=== PATIENT | female | born 1960 | race Caucasian/White ===

== ENCOUNTER 2020-02-09 00:25 | Outpatient (CLI) | payer OTHER, SELFPAY ==
[2020-02-09 20:23] LABS: SARS-CoV-2 RNA PCR Negative
== END 2020-02-09 00:26 | disposition home or self-care (01) ==
LOC: ANHCOVIDDT 00:25
PROVIDERS: PCP Family Medicine; Visit Provider Internal Medicine Gastroenterology
DX: Z01.812 Encounter for preprocedural laboratory examination (principal); Z20.828 Contact with and (suspected) exposure to other viral communicable diseases
CPT/HCPCS: 87635; C9803; U0003

== ENCOUNTER 2020-02-11 01:50 | Day surgery (SDC) | payer OTHER, SELFPAY ==
[2020-02-03 13:28] VITALS: BMI 29.3
[2020-02-11 08:01] VITALS: BP 137/70; PULSE 63; RESP 18; TEMP 36.6; O2SAT 99
--- NOTE | 2020-02-11 08:01 | WPDANESEPPF ---
Anes - Initial Pre Proc Eval Procedure: Operation Date: 02/11/20 09:00 Proposed Procedures p Esophagogastroduodenoscopy - Edward Kohli MD Date/Time: 02/11/20 08:01 Surgeon: Edward Kohli MD Pre Op Diagnosis: Lagunas's Esophagus Patient Data Age: 59 Gender: F Height: 5 ft 5 in Weight: 80 kg Allergies Allergy/AdvReac Type Severity Reaction Status Date / Time atorvastatin Allergy Unknown Unknown Verified 02/11/20 08:00 codeine Allergy Unknown Unknown Verified 02/11/20 08:00 losartan Allergy Unknown Unknown Verified 02/11/20 08:00 sumatriptan Allergy Unknown Unknown Verified 02/11/20 08:00 Home Medications Medication Instructions Recorded Confirmed Type esomeprazole magnesium 40 mg 40 mg PO DAILY #90 cap 10/20/19 02/03/20 Rx capsule,delayed release metoprolol succinate 25 mg 25 mg PO DAILY #7 tablet 10/20/19 02/11/20 Rx tablet,extended release 24 hr ezetimibe 10 mg tablet 10 mg PO DAILY #90 tablet 02/09/20 Rx Patient hx anesthesia problems: none Family hx anesthesia problems: none [facility] Past Medical History Medical History GERD (gastroesophageal reflux disease) Hypertension Family History Family History Father Hypertension Family history of diabetes mellitus in first degree relative Family history of primary malignant neoplasm of liver Mother Family history of elevated blood lipids Family history of Alzheimer's disease Other Family history of coronary artery disease Social History Social History Smoking status: Former smoker Second hand tobacco smoke exposure: No Alcohol intake: never Anes - Eval Final PreProcedure Day of Procedure 02/11/20 08:01 Patient weight: overweight Heart: regular rate and rhythm Lungs: clear to auscultation Airway: Mallampati scale class II Neurological: alert and oriented Last oral intake: >/= 8 hours ASA classification: II Emergent: no Anesthetic plan: proceed Anesthesia type and monitoring: general GIVS and standard monitoring Informed Consent: The patient's anesthetic plan and its attendant risks and benefits were discussed with the patient/family/POA. Questions were solicited and answers provided to the satisfaction of the patient/family/POA.
[2020-02-11] MEDS: LACTATED RINGERS 1,000 ML 150 ML IV CONT (08:15)
--- NOTE | 2020-02-11 08:20 | P.HP_ITS ---
History of Present Illness History of Present Illness Consent: Risks, benefits, and alternatives have been discussed and questions answered. Patient agrees to proceed with procedure. Chief complaint: Lagunas's Esophagus Narrative: Maddi Deras is a 59 year old female With known Lagunas's esophagus here for follow-up. [facility] Past Medical History Medical History GERD (gastroesophageal reflux disease) Hypertension Family History Family History Father Hypertension Family history of diabetes mellitus in first degree relative Family history of primary malignant neoplasm of liver Mother Family history of elevated blood lipids Family history of Alzheimer's disease Other Family history of coronary artery disease Social History Social History Smoking status: Former smoker Second hand tobacco smoke exposure: No Alcohol intake: never Meds Home Medications and Allergies Home Medications Medication Instructions Recorded Confirmed Type esomeprazole magnesium 40 mg 40 mg PO DAILY #90 cap 10/20/19 02/03/20 Rx capsule,delayed release metoprolol succinate 25 mg 25 mg PO DAILY #7 tablet 10/20/19 02/11/20 Rx tablet,extended release 24 hr ezetimibe 10 mg tablet 10 mg PO DAILY #90 tablet 02/09/20 Rx Allergies Allergy/AdvReac Type Severity Reaction Status Date / Time atorvastatin Allergy Unknown Unknown Verified 02/11/20 08:00 codeine Allergy Unknown Unknown Verified 02/11/20 08:00 losartan Allergy Unknown Unknown Verified 02/11/20 08:00 sumatriptan Allergy Unknown Unknown Verified 02/11/20 08:00 Vital Signs Vital Signs - 24 hr 02/11/20 08:01 Temperature 36.6 C Pulse Rate 63 Respiratory Rate 18 Blood Pressure 137/70 Pulse Oximetry 99 Exam Const: General: alert Orientation/consciousness: patient oriented x3 Resp: Auscultation: clear to auscultation bilaterally Cardio: Rhythm: regular rhythm GI: GI Palp: Yes Soft to palpation and No Tenderness to palpation present (GI) Neuro: General: patient oriented x3 Assessment and Plan Assessment and plan (1) Lagunas's esophagus: Code(s): K22.70 - Lagunas's esophagus without dysplasia Status: Acute Assessment and Plan: EGD with possible biopsy or dilatation or cautery.
[2020-02-11 09:12] VITALS: BP 104/55; PULSE 68; RESP 21; O2SAT 97
[2020-02-11 09:22] VITALS: BP 108/58; BP 117/66; PULSE 60; PULSE 65; RESP 17; RESP 18; O2SAT 98
== END 2020-02-11 09:50 | disposition home or self-care (01) ==
PROVIDERS: PCP Family Medicine; Visit Provider Internal Medicine Gastroenterology
PROC: 0DJ08ZZ Inspection of Upper Intestinal Tract, Via Natural or Artificial Opening Endoscopic (ICD-10-PCS; CPT 43235; principal; 2020-02-11 09:00)
DX: K22.70 Barrett's esophagus without dysplasia (principal); K21.0 Gastro-esophageal reflux disease with esophagitis; I10 Essential (primary) hypertension
CPT/HCPCS: 43239; 88305; J2704; J7120

== ENCOUNTER 2020-08-19 09:20 | Outpatient (CLI) | payer OTHER, SELFPAY ==
[2020-08-19 09:59] LABS: Hematocrit 36.5 % (37.0-47.0); Hemoglobin 12.3 g/dL (12.0-15.0); Mean Corpuscular HGB Conc 33.7 g/dl (32-36); Mean Corpuscular Hemoglobin 28.2 pg (26-34); Mean Corpuscular Volume 83.7 fl (80-100); Mean Platelet Volume 9.5 fl (7.4-10.4); Platelet Count Result 283 k/mm3 (150-375); Red Blood Count 4.36 M/mm3 (4.2-5.4); Red Cell Distribution Width 13.2 % (11.5-14.5); White Blood Count 6.8 K/mm3 (4.5-10.0)
[2020-08-19 10:13] LABS: Alanine Aminotransferase 33 U/L (4-35); Albumin Level 4.2 g/dL (3.5-5.1); Alkaline Phosphatase 87 U/L (38-126); Anion Gap 6 mmol/L (8-16); Aspartate Amino Transferase 36 U/L (14-36); Bilirubin,Total 0.4 mg/dL (0.2-1.3); Blood Urea Nitrogen 13 mg/dL (7-17); Calcium 8.7 mg/dL (8.4-10.2); Carbon Dioxide 30 mmol/L (22-30); Chloride 107 mmol/L (98-107); Cholesterol 206 mg/dL (0-200); Estimated Glomerular Filt Rate 57; Glucose 112 mg/dL (65-105); HDL Direct 33 mg/dL; Potassium 4.2 mmol/L (3.4-5.0); Sodium 143 mmol/L (137-145); Triglycerides 181 mg/dL (<150)
[2020-08-19 10:25] LABS: LDL Cholesterol Direct 138 mg/dL
[2020-08-19 10:44] LABS: Thyroid Stimulating Hormone 0.923 uIU/mL (0.465-4.680)
== END 2020-08-19 09:21 | disposition home or self-care (01) ==
PROVIDERS: PCP Family Medicine; Visit Provider Nurse Practitioner Family
DX: I10 Essential (primary) hypertension (principal); E78.5 Hyperlipidemia, unspecified; Z13.29 Encounter for screening for other suspected endocrine disorder
CPT/HCPCS: 36415; 80053; 80061; 84443; 85027

== ENCOUNTER 2021-03-23 09:15 | Outpatient (CLI) | payer OTHER, SELFPAY ==
[2021-03-23 09:54] LABS: Alanine Aminotransferase 47 U/L (4-35); Albumin Level 4.8 g/dL (3.5-5.1); Alkaline Phosphatase 113 U/L (38-126); Anion Gap 9 mmol/L (8-16); Aspartate Amino Transferase 48 U/L (14-36); Bilirubin,Total 0.4 mg/dL (0.2-1.3); Blood Urea Nitrogen 17 mg/dL (7-17); Carbon Dioxide 23 mmol/L (22-30); Chloride 108 mmol/L (98-107); Cholesterol 193 mg/dL (0-200); Estimated Glomerular Filt Rate > 60; Glucose 129 mg/dL (65-110); HDL Direct 33 mg/dL; Potassium 4.4 mmol/L (3.4-5.0); Sodium 140 mmol/L (137-145); Triglycerides 170 mg/dL (<150)
[2021-03-23 10:05] LABS: LDL Cholesterol Direct 133 mg/dL
== END 2021-03-23 09:16 | disposition home or self-care (01) ==
LOC: ANHLAB 09:17
PROVIDERS: PCP Family Medicine; Visit Provider Internal Medicine Cardiovascular Disease
DX: G47.30 Sleep apnea, unspecified (principal); I10 Essential (primary) hypertension; E78.5 Hyperlipidemia, unspecified; K21.9 Gastro-esophageal reflux disease without esophagitis; R07.9 Chest pain, unspecified
CPT/HCPCS: 36415; 80053; 80061

== ENCOUNTER 2023-06-26 00:17 | Day surgery (SDC) | payer OTHER, SELFPAY ==
--- NOTE | 2023-06-22 12:05 | SUR.PREOP ---
Patient called regarding upcoming procedure. left voicemail with procedure date and time and contact for questions.
--- NOTE | 2023-06-22 15:44 | PM.HPGS ---
History of Present Illness History of Present Illness Consent: Risks, benefits, and alternatives have been discussed and questions answered. Patient agrees to proceed with procedure. Chief complaint: Lagunas's esophagus without dysplasia Narrative: Maddi Deras is a 63 year old female With Lagunas's esophagus undergoing surveillance endoscopy. Review of Systems Review of Systems: All systems reviewed & are unremarkable except as noted in HPI and below PMFSH Past Medical History Medical History Abnormal MRI of head BMI 31.0-31.9,adult GERD (gastroesophageal reflux disease) Hypertension Family History Family History Father Hypertension Family history of diabetes mellitus in first degree relative Family history of primary malignant neoplasm of liver Mother Family history of elevated blood lipids Family history of Alzheimer's disease Other Family history of coronary artery disease Social History Social History Smoking status: Never smoker Second hand tobacco smoke exposure: No Alcohol intake: never Substance use: never Substance use type: does not use Living arrangements: with family 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 care concerns: No Meds Home Medications and Allergies Home Medications Medication Instructions Recorded Confirmed Type metoprolol succinate 25 mg 50 mg PO DAILY emergency department clinician 10/12/20 06/26/23 History tablet,extended release 24 hr esomeprazole magnesium 40 mg 40 mg PO DAILY #90 caps 08/13/22 06/26/23 Rx capsule,delayed release (Nexium) bempedoic acid 180 mg tablet 180 mg PO DAILY 01/22/23 06/26/23 History (Nexletol) losartan 50 mg tablet 50 mg PO DAILY 01/22/23 06/26/23 History ezetimibe 10 mg tablet 10 mg PO DAILY #90 tabs 05/04/23 06/26/23 Rx Allergies Allergy/AdvReac Type Severity Reaction Status Date / Time sumatriptan Allergy Unknown Unknown Verified 06/26/23 10:24 Exam Const: General: alert Orientation/consciousness: patient oriented x3 Resp: Auscultation: clear to auscultation bilaterally Cardio: Rhythm: regular rhythm GI: GI Palp: Yes Soft to palpation and No Tenderness to palpation present (GI) Neuro: General: patient oriented x3 Assessment and Plan Assessment and plan (1) Lagunas's esophagus: Code(s): K22.70 - Lagunas's esophagus without dysplasia Status: Acute Assessment and Plan: EGD with possible biopsy or dilatation or cautery.
[2023-06-26 10:25] VITALS: BP 141/67; PULSE 79; RESP 16; TEMP 36.1; O2SAT 98; BMI 31.8
--- NOTE | 2023-06-26 10:41 | P.PNAN_ITS ---
Anes - Initial Pre Proc Eval Procedure: Operation Date: 06/26/23 11:30 Proposed Procedures p Esophagogastroduodenoscopy - Edward Kohli MD Date/Time: 06/26/23 10:41 Surgeon: Edward Kohli MD Pre Op Diagnosis: Lagunas's esophagus without dysplasia Patient Data Age: 63 Gender: F Height: 1.65 m Weight: 86.7 kg Last Vital Signs Temp 96.9 F L 06/26/23 10:25 Pulse 79 06/26/23 10:25 Resp 16 06/26/23 10:25 BP 141/67 H 06/26/23 10:25 Pulse Ox 98 06/26/23 10:25 O2 Del Method Room Air 06/26/23 10:25 Allergies Allergy/AdvReac Type Severity Reaction Status Date / Time sumatriptan Allergy Unknown Unknown Verified 06/26/23 10:24 Home Medications Medication Instructions Recorded Confirmed Type metoprolol succinate 25 mg 50 mg PO DAILY pocket stitcher 10/12/20 06/26/23 History tablet,extended release 24 hr esomeprazole magnesium 40 mg 40 mg PO DAILY #90 caps 08/13/22 06/26/23 Rx capsule,delayed release (Nexium) bempedoic acid 180 mg tablet 180 mg PO DAILY 01/22/23 06/26/23 History (Nexletol) losartan 50 mg tablet 50 mg PO DAILY 01/22/23 06/26/23 History ezetimibe 10 mg tablet 10 mg PO DAILY #90 tabs 05/04/23 06/26/23 Rx Patient hx anesthesia problems: none Family hx anesthesia problems: none Results Review: All pre-operative results and documents have been reviewed as part of the pre- operative evaluation. [facility] Past Medical History Medical History Abnormal MRI of head BMI 31.0-31.9,adult GERD (gastroesophageal reflux disease) Hypertension Family History Family History Father Hypertension Family history of diabetes mellitus in first degree relative Family history of primary malignant neoplasm of liver Mother Family history of elevated blood lipids Family history of Alzheimer's disease Other Family history of coronary artery disease Social History Social History (Reviewed 01/22/23 @ 09:38 by NEMO Zarate Smoking status: Never smoker Second hand tobacco smoke exposure: No Alcohol intake: never Substance use: never Substance use type: does not use Living arrangements: with family 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 care concerns: No Anes - Eval Final PreProcedure Day of Procedure 06/26/23 10:41 Patient weight: obese Heart: regular rate and rhythm Lungs: clear to auscultation Airway: Mallampati scale class II Neurological: alert and oriented Last oral intake: >/= 8 hours ASA classification: III Emergent: no Anesthetic plan: proceed Anesthesia type and monitoring: general GIVS and standard monitoring Results Review: All pre-operative results and documents have been reviewed as part of the pre- operative evaluation. Informed Consent: The patient's anesthetic plan and its attendant risks and benefits were discussed with the patient/family/POA. Questions were solicited and answers provided to the satisfaction of the patient/family/POA.
[2023-06-26] MEDS: LACTATED RINGERS 1,000 ML 150 ML IV CONT (10:42)
[2023-06-26] MEDS: BENZOCAINE (*SP) 60 ML SPRAY CAN (HURRICAINE) 1 SPRAY MUCOUS MEM (11:41)
[2023-06-26 11:53] VITALS: BP 122/64; PULSE 65; RESP 26; O2SAT 97
[2023-06-26 12:03] VITALS: BP 117/64; PULSE 60; RESP 16; O2SAT 97
[2023-06-26 12:13] VITALS: BP 124/66; PULSE 61; RESP 17; O2SAT 98
== END 2023-06-26 12:21 | disposition home or self-care (01) ==
PROVIDERS: PCP Family Medicine; Visit Provider Internal Medicine Gastroenterology
PROC: 0DJ08ZZ Inspection of Upper Intestinal Tract, Via Natural or Artificial Opening Endoscopic (ICD-10-PCS; CPT 43235; principal; 2023-06-26 11:30)
DX: K22.70 Barrett's esophagus without dysplasia (principal); K29.50 Unspecified chronic gastritis without bleeding; K21.9 Gastro-esophageal reflux disease without esophagitis; I10 Essential (primary) hypertension; E66.9 Obesity, unspecified; Z68.31 Body mass index [BMI] 31.0-31.9, adult
CPT/HCPCS: 43239; 88305; J2704; J7120

== ENCOUNTER 2025-01-02 08:46 | Outpatient (CLI) | payer OTHER, SELFPAY ==
--- OUTSIDE RECORDS SUMMARY | 2025-01-02 08:50 | XMS_ITS | Clinical Summary ---
Author Organization [facility] Address [address] [place] [address] Phone Care Team Providers Care Rn Concurrent Review Name Role Phone Jose J Cuadra MD Primary Care Provider [phone] Allergies No known active allergies Medications esomeprazole (NexIUM) 20 mg Capsule, Delayed Release(E.C.) Take 40 mg by mouth daily before breakfast. Active ezetimibe (ZETIA) 10 mg tablet Take 10 mg by mouth daily. Active Active Problems Problem Noted Date Diagnosed Date Elevated liver enzymes 11/29/2016 NAFLD (nonalcoholic fatty liver disease) 017 Family History Medical History Relation Name Comments Cancer Father Other Mother Relation Name Status Comments Father Mother Social History Tobacco Use Types Packs/Day Years Used Date Smoking Tobacco: Former Comments Unknown Sex and Gender Information Value Date Recorded Sex Assigned at Not on file Legal Sex Female 2:03 PM CDT Gender Identity Not on file Sexual Orientation Not on file Last Filed Vital Signs Vital Sign Reading Time Taken Comments Blood Pressure 132/79 11/29/2016 9:04 AM CDT Pulse 79 11/29/2016 9:04 AM CDT Temperature - - Respiratory Rate - - Oxygen Saturation - - Inhaled Oxygen Concentration - - Weight 84.8 kg (187 lb) 11/29/2016 9:04 AM CDT Height 165.1 cm (5' 5) 11/29/2016 9:04 AM CDT Body Mass Index 31.12 11/29/2016 9:04 AM CDT Plan of Treatment Health Maintenance Due Date Last Done Comments DTAP/TDAP/TD VACCINES (1 - Tdap) 1980 HPV/Cotest (21-29) 1982 CERVICAL CANCER SCREENING 1991 HPV/Cotest (30-65) 1991 PAP SMEAR 1991 BREAST CANCER SCREENING 2001 COLORECTAL SCREENING 2006 Colorectal Cancer Screening 2006 FIT-DNA Q 3 years 2006 FIT/FOBT Q 1 year 2006 Flex Sig/CT Colonography Q 5 years 2006 ZOSTER VACCINE (1 of 2) 2011 RSV VACCINE (60+ or ) (1 - Risk 60-74 years 1-dose series) 2021 INFLUENZA VACCINE (#1) [address] [place] [address] [facility] BLUE ACCESS/TRUE BLUE PPO Care Teams Rn Concurrent Review Relationship Specialty Start Date End Date Jose J Cuadra MD [address] [place] [phone] PCP - General Family Practice 11/29/16
--- OUTSIDE RECORDS SUMMARY | 2025-01-02 08:51 | XMS_ITS | Clinical Summary ---
Author Organization [facility] [place] Address [address] [place] [address] Care Team Providers Care Compliance Monitor Name Role Phone Unknown, Notinfile Primary Care Provider Unavail able Allergies Active Allergy Reactions Criticality Noted Date Comments Sumatriptan Chest tightness Medium 10/12/2023 Medications metoprolol montiel-hydrochloroth iaz 50-12.5 mg tablet extended release 24 hr Take by mouth daily Active omeprazole magnesium 20 mg capsule,delayed release(DR/EC) Take by mouth 2 (two) times a day Active losartan (COZAAR) 50 mg tablet Take 1 tablet (50 mg total) by mouth daily Active ezetimibe (ZETIA) 10 mg tablet Take 1 tablet (10 mg total) by mouth daily Active bempedoic acid (Nexletol) 180 mg tablet Take 180 mg by mouth daily Active Active Problems Problem Noted Date Diagnosed Date Dermatochalasis of right upper eyelid 10/09/2023 Dermatochalasis of left upper eyelid 10/09/2023 Surgical History Surgery Date Site/Laterality Comments CERVICAL DISCECTOMY 06/25/2005 - 06/24/2006 N/A TUBAL LIGATION Medical History Medical History Date Comments Hypertension Social History Tobacco Use Types Packs/Day Years Used Date Smoking Tobacco: Never Smokeless Tobacco: Never Tobacco Cessation:Counseling Given: Not Answered AUDIT-C Answer Date Recorded Frequency of Alcohol Consumption Not on file 10/12/2023 Q2: How many drinks containi ng alcohol do you have on a typical day when you are drinking? Patient does not drink Q3: How often do you have si x or more drinks on one occasion? Never 10/12/2023 Personal Safety Answer Date Recorded Have you ever been in or are you currently in a harmful physical or emotional relationship or is someone making you feel afraid or unsafe? 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 Gender Identity Not on file Sexual Orientation Not on file Obstetrics History Last Filed Vital Signs Vital Sign Reading Time Taken Comments Blood Pressure 131/64 10/16/2023 9:10 AM CDT Pulse 57 10/16/2023 9:10 AM CDT Temperature 36.9 C (98.4 F) 10/16/2023 8:30 AM CDT Respiratory Rate 18 10/16/2023 6:42 AM CDT Oxygen Saturation 96% 10/16/2023 9:10 AM CDT Inhaled Oxygen Concentration - - Weight - - Height - - Body Mass Index - - Plan of Treatment Health Maintenance Due Date Last Done Comments Breast Cancer Screening-Mammogram 1961 Cervical Cancer Screening 1961 Colon Cancer Screening-Colonoscopy 1961 Depression Screening 1961 Hepatitis C Screening 1961 DTaP/Tdap/Td Vaccine (1 - Tdap) 1972 Hepatitis B Screening 1979 Regular Well Visit/Exam 18-64 1979 Zoster Vaccine (1 of 2) 2011 Covid-19 Vaccine ( - 2023-2 5 season) 2024 04/14/2021, 07/05/2020, 06/14/2020 Influenza Vaccine (Season Ended) 2025 05/01/2022, 04/12/2021 Pneumococcal vaccine <65 Aged Out No longer eligible based on patient's age to complete this topic Insurance Care Teams Compliance Monitor Relationship Specialty Start Date End Date Unknown, Notinfile PCP - General 10/16/23
--- OUTSIDE RECORDS SUMMARY | 2025-01-02 08:51 | XMS_ITS | Referral Summary ---
Author Organization 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
[2025-01-02 09:09] LABS: Hematocrit 34.2 % (37.0-47.0); Hemoglobin 11.4 g/dL (12.0-15.0); Immature Granulocyte Percent A 0.3 % (0-0.5); Lymphocytes Absolute Auto 2.44 K/mm3 (0.9-3.2); Mean Corpuscular HGB Conc 33.3 g/dl (32-36); Mean Corpuscular Hemoglobin 28.2 pg (26-34); Mean Corpuscular Volume 84.7 fl (80-100); Nucleated Red Blood Cells Absolute Auto 0.000 K/mm3 (0.0-0.012); Nucleated Red Blood Cells Perc 0.0 % (0.0-0.2); Platelet Count Result 347 k/mm3 (150-375); Red Blood Count 4.04 M/mm3 (4.2-5.4); White Blood Count 7.3 K/mm3 (4.5-10.0)
[2025-01-02 09:29] LABS: Alanine Aminotransferase 24 U/L (6-35); Albumin Level 4.6 g/dL (3.5-5.1); Alkaline Phosphatase 82 U/L (38-126); Anion Gap 11 mmol/L (4-12); Aspartate Amino Transferase 45 U/L (14-36); Bilirubin,Total 0.2 mg/dL (0.2-1.3); Blood Urea Nitrogen 21 mg/dL (7-17); Calcium 9.8 mg/dL (8.4-10.2); Carbon Dioxide 28 mmol/L (22-30); Chloride 102 mmol/L (98-107); Cholesterol 164 mg/dL (0-200); Estimated Glomerular Filt Rate 45; Glucose 109 mg/dL (65-110); HDL Direct 31 mg/dL; Potassium 4.5 mmol/L (3.4-5.0); Sodium 141 mmol/L (137-145); Total Protein 8.3 g/dL (6.3-8.2); Triglycerides 309 mg/dL (<150)
[2025-01-02 10:04] LABS: Thyroid Stimulating Hormone 1.480 uIU/mL (0.465-4.680)
== END 2025-01-02 08:47 | disposition home or self-care (01) ==
LOC: ANHLAB 08:47
PROVIDERS: PCP Family Medicine; Visit Provider Nurse Practitioner Adult Health
DX: E78.5 Hyperlipidemia, unspecified (principal); Z83.430 Family history of elevated lipoprotein(a); I10 Essential (primary) hypertension; Z13.29 Encounter for screening for other suspected endocrine disorder
CPT/HCPCS: 36415; 80053; 80061; 83695; 84443; 85025

== ENCOUNTER 2025-02-12 08:02 | Outpatient (CLI) | payer OTHER, SELFPAY ==
--- OUTSIDE RECORDS SUMMARY | 2025-02-10 06:45 | XMS_ITS | Continuity of Care Document ---
Author Organization [facility] Address [address] [place] [phone] Phone Care Team Providers Care Grain Elevator Superintendent Name Role Phone Jose BLANCO, FACC, Puneet Unavailable Unavailab le Allergies, Adverse Reactions, Alerts Substance Reaction Status Criticality Njhaumr-PTV-AfR Reductase Inhibitors Acti ve No Information sumatriptan Active No Information Medications Medication Instructions Dosage Effective Dates (start - stop) Status Comments Nexium 20 mg capsule,delayed release take 1 capsule by oral route 2 times every day at least 1 hour before a meal swallowing whole. Do not crush or chew granules. 20 MG - Active metoprolol succinate ER 25 mg tablet,extended release 24 hr take 1 tablet by oral route every day 25 MG - Active ezetimibe 10 mg tablet take 1 tablet by oral route every day 10 MG - Active losartan 50 mg tablet take 1 tablet by o ral route every day 50 MG - Active Nexletol 180 mg tablet take 1 tablet by oral route every day 180 MG - Active Procedures Procedure Date Complex e/m visit add on OFFICE/OUTPATIENT VISIT, EST Advance Directives Directive Yes / No Effective Date File Name Other Directive No N/A N/A WARNING:The information contained in this section is historical and is provided for information only and does not constitute a legal document or any assurance that the information is still accurate. Please verify the information with the reynolds of the legal document before using it for clinical purposes. Encounters Encounter Description Practice Location Reason(s) For Visit Diagnoses Date Provider Providers Copied on Encounter OFFICE/OUTPA TIENT VISIT, EST [facility] , [address] [place] [address], [id number] , [place] tel: [phone] [facility] [place] follow up (chief complaint) Chest painHTNHyperlipide miaPrediabetesSlee p apneaBody mass index [BMI] 27.0-27.9, adultFamily hx of stroke Jose Puneet. [address], [place], [place], [id number] , [place]. tel: [phone] Referring Provider: Jose J Cuadra, [address], [place], [address]. tel:[phone] Family History Family Member Type Diagnosis Age At Onset No Information Payers Payer name Insurance type Covered constitution party ID Madeleine garcia(s) [employer] [id number] Social History Type Description Quantity Date Captured Comments Alcohol Use Details Unknown Caffeine Use Details Unknown Tobacco Use Status No Information Smoking Status Former smoker Non-Smoking Tobacco Use Details : No Details Available : No Details Available Sex Female Vital Signs Date / Time: Height Weight BMI Pulse Rate Blood Pressure Temperature Respiratory Rate Body Surface Area Head Circumference Head Circ. Percentile Wt./William. Percentile BMI percentile Pulse Ox Inhaled Ox 11:40 AM 65.00 in 74.661 kg (164.60 lbs) 27.3 9 kg/m eter (2) 71 /min 136/76 mm[Hg] 16 /min 1.85 meter(2) 98 % 21 % Chief Complaint And Reason For Visit From encounter dated '02/10/2025 11:45'. follow up (chief complaint) Reason For Referral Reason For Referral No Information Plan Of Treatment Date Type Action Status Goal Dietary manageme nt education, guidance, and counseling completed Appointment Maddi Deras BOOKED Appointment Maddi Deras BOOKED Appointment Maddi Deras BOOKED Future Order: Lab Order [id number] ([id number]), Ordered on: Ordered Future Order: Radiology Order Du plex scan of extracranial arteries; complete bilateral study ([id number]), Ordered on: Ordered Future Order: Radiology Order Ec hocardiogram, Complete Transthoracic ([id number]), Ordered on: Ordered Future Order: Lab Order Hemoglob in A1c ([id number]), Ordered on: Ordered Future Order: Lab Order Lipid Pa dequan ([id number]), Ordered on: Ordered History Of Present Illness Encounter Date Complaint History Of Prese nt Illness follow up Functional Status Date Functional Assessmen t No Information Instructions Date Instruction Additional Infor mation Dietary management e ducation, guidance, and counseling Related to Body mass index [BMI] 27.0-27.9, adult Assessments Type Assessment Date assessment Chest pain assessment HTN assessment Hyperlipidemia assessment Prediabetes assessment Sleep apnea assessment Body mass index [BMI] 27.0-27.9, adult assessment Family hx of stroke Patient Care Teams Name Effective Dates (start - stop) Status Members No Information
--- OUTSIDE RECORDS SUMMARY | 2025-02-12 08:19 | XMS_ITS | Clinical Summary ---
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
--- OUTSIDE RECORDS SUMMARY | 2025-02-12 08:19 | XMS_ITS | Clinical Summary ---
Author Organization [facility] Address [address] [place] [address] Phone Care Team Providers Care Migratory Game Bird Biologist Name Role Phone Jose J Cuadra MD Primary Care Provider [phone] Allergies No known active allergies Medications esomeprazole [...] VACCINE (#1) [address] [place] [address] [facility] BLUE ACCESS/TRUE BLUE PPO Care Teams Migratory Game Bird Biologist Relationship Specialty Start Date End Date Jose J Cuadra MD [address] [place] [phone] PCP - General Family Practice 11/29/16
[2025-02-12 09:21] LABS: Hematocrit 32.4 % (37.0-47.0); Hemoglobin 10.8 g/dL (12.0-15.0); Immature Granulocyte Percent A 0.2 % (0-0.5); Lymphocytes Absolute Auto 2.24 K/mm3 (0.9-3.2); Mean Corpuscular HGB Conc 33.3 g/dl (32-36); Mean Corpuscular Hemoglobin 28.8 pg (26-34); Mean Corpuscular Volume 86.4 fl (80-100); Nucleated Red Blood Cells Absolute Auto 0.000 K/mm3 (0.0-0.012); Nucleated Red Blood Cells Perc 0.0 % (0.0-0.2); Platelet Count Result 349 k/mm3 (150-375); Red Blood Count 3.75 M/mm3 (4.2-5.4); White Blood Count 6.4 K/mm3 (4.5-10.0)
[2025-02-12 09:35] LABS: Hemoglobin A1C 5.2 % (<5.7)
[2025-02-12 09:40] LABS: Cholesterol 156 mg/dL (0-200); HDL Direct 23 mg/dL; Triglycerides 500 mg/dL (<150)
[2025-02-12 09:42] LABS: Alanine Aminotransferase 20 U/L (6-35); Albumin Level 4.4 g/dL (3.5-5.1); Alkaline Phosphatase 82 U/L (38-126); Anion Gap 9 mmol/L (4-12); Aspartate Amino Transferase 43 U/L (14-36); Bilirubin,Total 0.5 mg/dL (0.2-1.3); Blood Urea Nitrogen 29 mg/dL (7-17); Calcium 9.5 mg/dL (8.4-10.2); Carbon Dioxide 27 mmol/L (22-30); Chloride 101 mmol/L (98-107); Estimated Glomerular Filt Rate 39; Glucose 105 mg/dL (65-110); Potassium 4.6 mmol/L (3.4-5.0); Sodium 137 mmol/L (137-145); Total Protein 7.7 g/dL (6.3-8.2)
== END 2025-02-12 08:03 | disposition home or self-care (01) ==
PROVIDERS: PCP Family Medicine; Referring Provider Internal Medicine Cardiovascular Disease; Visit Provider Nurse Practitioner Adult Health
DX: E78.5 Hyperlipidemia, unspecified (principal); N17.9 Acute kidney failure, unspecified; D64.9 Anemia, unspecified; G47.30 Sleep apnea, unspecified; I10 Essential (primary) hypertension; R07.9 Chest pain, unspecified; R73.03 Prediabetes
CPT/HCPCS: 36415; 80053; 80061; 83036; 85025

== ENCOUNTER 2025-02-15 12:07 | Emergency (ER) | payer OTHER, SELFPAY ==
--- OUTSIDE RECORDS SUMMARY | 2025-02-12 09:06 | XMS_ITS | Continuity of Care Document ---
Author Organization [facility] Address [address] [place] [phone] Phone Care Team Providers Care Shape Hand Name Role Phone Jose BLANCO, FACC, Puneet Unavailable Unavailab le Allergies, Adverse Reactions, Alerts Substance Reaction Status Criticality Jjumeux-VGN-RnV Reductase Inhibitors Acti ve No Information sumatriptan Active No Information Medications Medication Instructions Dosage Effective Dates (start - stop) Status Comments Vascepa 1 gram capsule take 2 capsule by oral route 2 times every day with food swallowing whole. Do not chew, open, dissolve and/or crush. 2 G - Active Nexium 20 mg capsule,delayed release take 1 [...] route every day 10 MG - Active Nexletol 180 mg tablet take 1 tablet by oral route every day 180 MG - Active losartan 50 mg tablet take 1 tablet by oral route every day 50 MG - No Longer Active Procedures Procedure Date Complex e/m visit add on OFFICE/OUTPATIENT VISIT, EST Advance Directives Directive Yes / No Effective Date File Name No Information Encounters Encounter Description Practice Location Reason(s) For Visit Diagnoses Date Provider Providers Copied on Encounter [facility], [address] [place] [address], [id number] , tel: [phone] [facility] [address] Restoration No Information Jose Puneet. [address], [place], [place], [id number] , [place]. tel: [phone] OFFICE/OUTPA TIENT VISIT, [facility], [address] [facility], [place], [place], [id number] , [place] tel: [phone] [facility] [address] [place] follow up (chief complaint) Chest painHTNHyperlipid emiaPrediabetesSl eep apneaBody mass index [BMI] 27.0-27.9, adultFamily hx of stroke Garcia Puneet. [address], [place], [place], [id number] , [place]. tel: [phone] Referring Provider: Jose J Cuadra, [address], [place], [address]. tel:[phone] Family History Family Member Type Diagnosis Age At Onset No Information Payers Payer name Insurance type Covered republican ID Madeleine garcia(s) VisualCV [id number] Social History Type Description Quantity Date Captured Comments Alcohol Use Details Unknown Caffeine Use Details Unknown Tobacco Use Status No Information Smoking Status No Information Sex Female Chief Complaint And Reason For Visit No Information Reason For Referral Reason For Referral No Information Plan Of Treatment Date Type Action Status Goal Dietary manageme nt education, guidance, and counseling completed Appointment Maddi Deras BOOKED Appointment Maddi Deras BOOKED Appointment Maddi Deras BOOKED Future Order: Lab Order [id number] ([id number]), Ordered on: Ordered Future Order: Radiology Order Du plex scan of extracranial arteries; complete bilateral study ([id number]), Ordered on: Ordered Future Order: Radiology Order Ec hocardiogram, Complete Transthoracic ([id number]), Ordered on: Ordered Future Order: Lab Order Hemoglob in A1c ([id number]), Ordered on: Ordered Future Order: Lab Order Lipid Pa dequan ([id number]), Ordered on: Ordered History Of Present Illness Encounter Date Complaint History Of Prese nt Illness follow up Functional Status Date Functional Assessmen t No Information Instructions Date Instruction Additional Infor mation Dietary management e ducation, guidance, and counseling Related to Body mass index [BMI] 27.0-27.9, adult Assessments Type Assessment Date No Information Patient Care Teams Name Effective Dates (start - stop) Status Members No Information
--- NOTE | ~2025-02-15 | CT_ITS ---
EXAMINATION: CT abdomen pelvis wo con DATE: 02/15/2025 13:37 INDICATION: Abdominal pain TECHNIQUE: Computed tomography (CT) of the abdomen and pelvis was performed without intravenous contrast. The dose-length product was 330.26 mGy-cm. Automated exposure control and iterative reconstruction technique were employed. COMPARISON: None. FINDINGS: Lung bases unremarkable. Heart size normal. No significant pleural or pericardial effusion. The liver, spleen, pancreas, adrenal glands and kidneys are unremarkable. Fat-containing umbilical hernia. Nonobstructive bowel gas pattern. There is atherosclerosis of the aorta without aneurysm. No l ymphadenopathy. No free air or free fluid. No renal/ureteral stones or hydronephrosis. No acute osseous abnormality. IMPRESSION: 1. No acute abdominal abnormality. Reviewed, dictated and finalized at location O.
--- NOTE | ~2025-02-15 | XR_ITS ---
EXAMINATION: XR chest 1V portable 02/15/2025 13:03 INDICATION: Right upper quadrant pain PROCEDURE: AP portable chest COMPARISON: No prior studies for comparison. FINDINGS: The lungs are clear. The cardiomediastinal silhouette is within normal limits. There are no pleural effusions. There is no pneumothorax suspected. IMPRESSION: 1: NO ACUTE CARDIOPULMONARY DISEASE. Reviewed, dictated and finalized at location O.
--- NOTE | ~2025-02-15 | US_ITS ---
US abdomen limited INDICATION: Right upper quadrant pain PROCEDURE: Realtime right upper abdominal ultrasound. COMPARISON: No prior studies for comparison. FINDINGS: The pancreas is normal without focal mass or pancreatic ductal dilation. Liver echotexture is normal without focal mass or intrahepatic biliary dilatation. There is normal directional flow in the portal vein. The gallbladder is normal without stones, gallbladder wall thickening or pericholecystic fluid. Common bile duct measures 6.7 mm. No sonographic Grigsby's sign. Right renal echotexture is unremarkable. Right kidney measures 9.2 cm. IMPRESSION: 1: Normal limited abdominal ultrasound. Reviewed, dictated and finalized at location O.
--- OUTSIDE RECORDS SUMMARY | 2025-02-15 12:09 | XMS_ITS | Clinical Summary ---
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
--- NOTE | 2025-02-15 12:24 | ED.ABDPAIN ---
HPI - Abdominal Pain General Chief Complaint: Abdominal Pain Stated Complaint: RUQ pain, nausea Time Seen by Provider: 02/15/25 12:23 Source: patient Mode of arrival: ambulatory Limitations: no limitations History of Present Illness HPI narrative: 64 YEARS OLD WHITE FEMALE CAME TO THE ED FROM HOME WITH COMPLAINING OF RIGHT UPPER QUADRANT PAIN STARTED AT 6:00 A.M. TODAY, SHARP, STABBING, WORSE WITH COUGHING, POSITION, NOTHING MAKE IT BETTER. SHE DENIES ANY FEVER, CHILLS, NAUSEA, VOMITING. NO HISTORY OF ABDOMINAL SURGERY. HISTORY OF HYPERTENSION AND HYPERLIPIDEMIA. PAIN RADIATING TO MID BACK ON THE RIGHT SIDE. Related Data Home Medications ?Medication ?Instructions ?Recorded ?Confirmed ?Last Taken ?Type bempedoic acid 180 mg tablet 180 mg PO DAILY 01/22/23 12/18/24 Unknown History (Nexletol) losartan 50 mg tablet 50 mg PO DAILY 01/22/23 12/18/24 Unknown History esomeprazole magnesium 40 mg 20 mg PO BID 08/05/24 12/18/24 Unknown History capsule,delayed release (Nexium) metoprolol succinate 25 mg mg PO 08/05/24 12/18/24 Unknown History tablet,extended release 24 hr Allergies Allergy/AdvReac Type Severity Reaction Status Date / Time sumatriptan Allergy Unknown Unknown Verified 02/15/25 12:08 Review of Systems Review of Systems: All systems reviewed & are unremarkable except as noted in HPI and below PMFSH Past Medical History Medical History Elevated lipoprotein A level Elevated liver enzymes Anemia AMANDA (acute kidney injury) Breast cancer screening Colon cancer screening Skin cancer screening Family history of elevated lipoprotein (a) Abnormal MRI of head GERD (gastroesophageal reflux disease) Hypertension Family History Family History Father Hypertension Family history of diabetes mellitus in first degree relative Family history of primary malignant neoplasm of liver Mother Family history of elevated blood lipids Family history of Alzheimer's disease Other Family history of coronary artery disease Social History Social History Smoking status: Never smoker Second hand tobacco smoke exposure: No Alcohol intake: never Substance use: never Substance use type: does not use Living arrangements: with family 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 care concerns: No Exam Narrative: GENERAL APPEARANCE: WELL-DEVELOPED, WELL-NOURISHED SKIN: NORMAL COLOR HEAD: NORMOCEPHALIC, NONTRAUMATIC EYES: CLEAR CONJUNCTIVA ENT: OROPHARYNX NORMAL, EARS NORMAL, NOSE NORMAL NECK: SUPPLE, NONTENDER CHEST AND RESPIRATORY: AIRWAY PATENT, NO RESPIRATORY DISTRESS, NO ACCESSORY MUSCLE USE HEART: REGULAR RATE/RHYTHM ABDOMEN: SOFT, SEVERE TENDERNESS RIGHT UPPER QUADRANT AND EPIGASTRIC AREA, AND RIGHT FLANK AREA, NO BRUISES, NO SWELLING, NO RASH VASCULAR: NORMAL PERIPHERAL PULSES, NORMAL CAPILLARY REFILL. MUSCULOSKELETAL: NORMAL RANGE OF MOTION, NONTENDER BACK NEUROLOGIC: ALERT AND ORIENTED ?3, FINANCE VICE PRESIDENT IS NORMAL TESTED, NO GROSS MOTOR DEFICIT Course Vital Signs Vital signs: Vital Signs Temperature 36.6 C 02/15/25 12:30 Pulse Rate 93 02/15/25 12:30 Respiratory Rate 20 02/15/25 12:30 Blood Pressure 136/89 02/15/25 12:30 Pulse Oximetry 100 02/15/25 12:30 Oxygen Delivery Room Air 02/15/25 12:30 Temperature 36.6 C 02/15/25 12:30 Pulse Rate 93 02/15/25 12:30 Respiratory Rate 20 02/15/25 12:30 Blood Pressure 136/89 02/15/25 12:30 Pulse Oximetry 100 02/15/25 12:30 Oxygen Delivery Room Air 02/15/25 12:30 MDM - Abdominal Pain MDM Narrative Medical decision making narrative: PATIENT CAME WITH RIGHT UPPER QUADRANT RADIATING TO RIGHT MID BACK SHARP STABBING PAIN VITAL SIGNS SHOWING INSIGNIFICANT ABNORMALITY PHYSICAL EXAMINATION SHOWING SEVERE TENDERNESS RIGHT UPPER QUADRANT EPIGASTRIC AND RIGHT FLANK WITH LIGHT PALPATION, WORSE WHEN SHE TRIED CHANGE POSITION FROM SITTING TO LAY DOWN AND VICE VERSA. DIFFERENTIAL DIAGNOSIS INCLUDE MUSCULOSKELETAL, URINARY TRACT INFECTION, CHOLECYSTITIS, GASTRITIS, PANCREATITIS, ESOPHAGITIS, CONSTIPATION, DIVERTICULITIS. BLOOD WORKUP TODAY INCLUDES CBC, CMP, LIPASE SHOWED creatinine 1.5 AST 58 otherwise within normal limit URINALYSIS SHOWED no significant finding CT ABDOMEN AND PELVIS WITH IV CONTRAST SHOWED no acute abnormality Chest x-ray showed no acute abnormality Gallbladder ultrasound showed no acute abnormality Diagnosis abdominal pain, flank pain, likely musculoskeletal Discharged on cyclobenzaprine and Tylenol as needed Discharge Differential Diagnosis Differential diagnosis: Likely other ( ABOVE) Medical Records Attestation: I reviewed the patient's medical records. Lab Data Attestation: I reviewed the patient's lab results. 02/15/25 12:33 02/15/25 12:33 Labs: Lab Results 02/15/25 02/15/25 Range/Units 12:33 13:12 WBC 8.3 (4.5-10.0) K/mm3 RBC 4.18 L (4.2-5.4) M/mm3 Hgb 11.9 L (12.0-15.0) g/dL Hct 35.2 L (37.0-47.0) % MCV 84.2 (80-100) fl MCH 28.5 (26-34) pg MCHC 33.8 (32-36) g/dl RDW 12.7 (11.5-14.5) % Plt Count 385 H (150-375) k/mm3 MPV 9.2 (7.4-10.4) fl Immature Gran % (Auto) 0.2 (0-0.5) % Neut % (Auto) 53.2 (45.5-73.1) % Lymph % (Auto) 35.3 (18.3-44.2) % Stearns % (Auto) 6.9 (2.6-8.5) % Eos % (Auto) 3.7 (0-4.4) % Baso % (Auto) 0.7 (0.2-1.2) % Lymph # (Auto) 2.92 (0.9-3.2) K/mm3 Stearns # (Auto) 0.6 (0.1-0.6) K/mm3 Eos # (Auto) 0.3 (0-0.3) K/mm3 Baso # (Auto) 0.1 (0.0-0.1) K/mm3 Abs Immat Gran (auto) 0.02 (0.00-0.031) K/mm3 Absolute Neuts (auto) 4.4 (1.3-6.7) K/mm3 Absolute Nucleated RBC 0.000 (0.0-0.012) K/mm3 Nucleated RBC % 0.0 (0.0-0.2) % Sodium 137 (137-145) mmol/L Potassium 4.8 (3.4-5.0) mmol/L Chloride 98 (98-107) mmol/L Carbon Dioxide 29 (22-30) mmol/L Anion Gap 10 (4-12) mmol/L BUN 28 H (7-17) mg/dL Creatinine 1.50 H (0.7-1.0) mg/dL Estim Creat Clear Calc 31 ml/min Estimated GFR 35 L (59 - ) Glucose 102 (65-110) mg/dL Calcium 10.3 H (8.4-10.2) mg/dL Total Bilirubin 0.5 (0.2-1.3) mg/dL AST 58 H (14-36) U/L ALT 33 (6-35) U/L Alkaline Phosphatase 87 (38-126) U/L Total Protein 9.0 H (6.3-8.2) g/dL Albumin 5.1 (3.5-5.1) g/dL Lipase 77 (23-300) U/L Urine Color Yellow (Yellow) Urine Appearance Cloudy H (Clear) Urine pH 6.5 (5.0-9.0) Ur Specific [place] 1.022 (1.001-1.035) Urine Protein Trace (Negative) mg/dL Urine Glucose (UA) Negative (Negative) mg/dL Urine Ketones Trace H (Negative) mg/dL Ur Blood (Man) Negative (Negative) Urine Nitrate Negative (Negative) Urine Bilirubin Negative (Negative) Urine Urobilinogen 1.0 (<2.0) mg/dL Leukocyte Esterase Rfl Trace H (Negative) PAOLA/UL Urine RBC 0-2 (0-2) /hpf Urine WBC 0-5 (0-3) /hpf Ur Squamous Epith Cells Moderate (Few) /hpf Urine Bacteria None seen /hpf Urine Casts 0-2 Imaging Data Radiologist's impression: ITS Impressions Chest X-Ray 02/15/25 13:05 IMPRESSION: 1: NO ACUTE CARDIOPULMONARY DISEASE. Abdomen/Pelvis CT 02/15/25 13:54 IMPRESSION: 1. No acute abdominal abnormality. Abdomen Ultrasound 02/15/25 15:08 IMPRESSION: 1: Normal limited abdominal ultrasound. Critical Care Time Critical Care Time Critical Care Time: No Discharge Plan Discharge Clinical Impression: Abdominal pain, Acute flank pain Patient Disposition: Home Condition: Stable Instructions: Abdominal Pain (ED), Flank Pain (ED) Patient Language: Luxembourgish Prescriptions: New cyclobenzaprine 10 mg tablet 10 mg PO TID PRN (Reason: muscle spasm) Qty: 20 0RF No Action Nexletol 180 mg tablet 180 mg PO DAILY losartan 50 mg tablet 50 mg PO DAILY esomeprazole magnesium [Nexium] 40 mg capsule,delayed release(DR/EC) 20 mg PO BID metoprolol succinate 25 mg tablet extended release 24 hr PO ezetimibe 10 mg tablet 10 mg PO DAILY Qty: 90 1RF Repatha SureClick 140 mg/mL pen injector 140 mg subcut DIRECTED Qty: 2 2RF Rx Instructions: Inject Sub-q every two weeks. Follow-up/Referrals: Jose J Cuadra MD [Primary Care Provider, Family Practice]
[2025-02-15 12:30] VITALS: BP 136/89; PULSE 93; RESP 20; TEMP 36.6; O2SAT 100
[2025-02-15 12:37] LABS: Hematocrit 35.2 % (37.0-47.0); Hemoglobin 11.9 g/dL (12.0-15.0); Immature Granulocyte Percent A 0.2 % (0-0.5); Lymphocytes Absolute Auto 2.92 K/mm3 (0.9-3.2); Mean Corpuscular HGB Conc 33.8 g/dl (32-36); Mean Corpuscular Hemoglobin 28.5 pg (26-34); Mean Corpuscular Volume 84.2 fl (80-100); Nucleated Red Blood Cells Absolute Auto 0.000 K/mm3 (0.0-0.012); Nucleated Red Blood Cells Perc 0.0 % (0.0-0.2); Platelet Count Result 385 k/mm3 (150-375); Red Blood Count 4.18 M/mm3 (4.2-5.4); White Blood Count 8.3 K/mm3 (4.5-10.0)
[2025-02-15 12:59] LABS: Alanine Aminotransferase 33 U/L (6-35); Albumin Level 5.1 g/dL (3.5-5.1); Alkaline Phosphatase 87 U/L (38-126); Anion Gap 10 mmol/L (4-12); Aspartate Amino Transferase 58 U/L (14-36); Bilirubin,Total 0.5 mg/dL (0.2-1.3); Blood Urea Nitrogen 28 mg/dL (7-17); Calcium 10.3 mg/dL (8.4-10.2); Carbon Dioxide 29 mmol/L (22-30); Chloride 98 mmol/L (98-107); Estimated CRCL calculation 31 ml/min; Estimated Glomerular Filt Rate 35; Glucose 102 mg/dL (65-110); Lipase 77 U/L (23-300); Potassium 4.8 mmol/L (3.4-5.0); Sodium 137 mmol/L (137-145); Total Protein 9.0 g/dL (6.3-8.2)
[2025-02-15] MEDS: SODIUM CHLORIDE 0.9% IV 1,000 ML 999 ML IV CONT (13:04)
[2025-02-15] MEDS: ONDANSETRON INJ 4 MG/2 ML VIAL IV PUSH ×2 (13:05→15:40)
[2025-02-15] MEDS: HYDROmorphone HCL INJ (*CRX) 1 MG/ML SYR 0.5 MG IV PUSH (13:05)
[2025-02-15 13:24] LABS: Add Urine Microscopic? YES; Appearance Urine Cloudy (Clear); Glucose Urine UA Negative (Negative); Leukocyte Esterase Ur Trace LEU/UL (Negative); Nitrate Urine Negative (Negative); Non Pathogenic Casts 0-2; Specific Grav Ur 1.022 (1.001-1.035)
[2025-02-15 15:38] VITALS: BP 124/67; PULSE 65; RESP 20; O2SAT 100
== END 2025-02-15 15:55 | disposition home or self-care (01) ==
PROVIDERS: Emergency Medicine; Emergency Provider Emergency Medicine; PCP Family Medicine
DX: R10.11 Right upper quadrant pain (principal); E78.5 Hyperlipidemia, unspecified; I10 Essential (primary) hypertension
CPT/HCPCS: 36415; 71045; 74176; 76705; 80053; 81001; 83690; 85025; 96361; 96374; 96375; 96376; 99284; J1171; J2405; J7030

== ENCOUNTER 2025-04-09 00:57 | Day surgery (SDC) | payer OTHER, SELFPAY ==
[2025-04-01 10:23] VITALS: BMI 26.6
--- OUTSIDE RECORDS SUMMARY | 2025-04-09 00:59 | XMS_ITS | Clinical Summary ---
Author Organization [facility] Address [address] [place] [address] Phone Care Team Providers Care Charge Hand Name Role Phone Jose J Cuadra MD Primary Care Provider [phone] Allergies No known active allergies Medications esomeprazole [...] VACCINE (#1) [address] [place] [address] [facility] BLUE ACCESS/TRUE BLUE PPO Care Teams Charge Hand Relationship Specialty Start Date End Date Jose J Cuadra MD [address] [place] [id number] PCP - General Family Practice 11/29/16
--- OUTSIDE RECORDS SUMMARY | 2025-04-09 00:59 | XMS_ITS | Clinical Summary ---
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
[2025-04-09 12:08] VITALS: BP 133/59; PULSE 74; RESP 16; TEMP 36.2; O2SAT 100; BMI 26.9
[2025-04-09] MEDS: LACTATED RINGERS 1,000 ML 150 ML IV CONT (12:14)
--- NOTE | 2025-04-09 12:21 | PM.IMHP ---
H&P: HPI History of Present Illness Date/Time: 04/09/25 12:21 Chief Complaint: Positive Cologuard Narrative: This is the patient's 1st colonoscopy in more than 20 years. She was recently found to have Cologuard positive test.. There are no GI symptoms and there is no family history of colorectal cancer. Review of Systems Review of Systems: All systems reviewed & are unremarkable except as noted in HPI and below PMFSH Past Medical History Medical History (Updated 02/26/25 @ 13:32 by Leigh Donnelly APRN) Positive colorectal cancer screening using Cologuard test Elevated lipoprotein A level Elevated liver enzymes Anemia AMANDA (acute kidney injury) Breast cancer screening Colon cancer screening Skin cancer screening Family history of elevated lipoprotein (a) Abnormal MRI of head GERD (gastroesophageal reflux disease) Hypertension Family History Family History Father Hypertension Family history of diabetes mellitus in first degree relative Family history of primary malignant neoplasm of liver Mother Family history of elevated blood lipids Family history of Alzheimer's disease Other Family history of coronary artery disease Social History Social History Smoking status: Former smoker Tobacco type: cigarettes Second hand tobacco smoke exposure: No Alcohol intake: never Substance use: never Substance use type: does not use Living arrangements: with family 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 care concerns: No Meds Home Medications and Allergies Home Medications ?Medication ?Instructions ?Recorded ?Confirmed ?Type bempedoic acid 180 mg tablet 180 mg PO DAILY 01/22/23 04/09/25 History (Nexletol) ezetimibe 10 mg tablet 10 mg PO DAILY #90 tabs 10/31/23 04/09/25 Rx esomeprazole magnesium 40 mg 20 mg PO BID 08/05/24 04/09/25 History capsule,delayed release (Nexium) metoprolol succinate 25 mg 25 mg PO DAILY 08/05/24 04/09/25 History tablet,extended release 24 hr Allergies Allergy/AdvReac Type Severity Reaction Status Date / Time sumatriptan Allergy Unknown Unknown Verified 04/09/25 12:07 Vital Signs Vital Signs - 24 hr 04/09/25 12:08 Temperature 97.2 F L Pulse Rate 74 Respiratory Rate 16 Blood Pressure 133/59 L Pulse Oximetry 100 Oxygen Delivery Room Air Exam Const: General: cooperative and healthy appearing Resp: Effort & Inspection: normal respiratory effort and able to speak in complete sentences Auscultation: clear to auscultation bilaterally Cardio: Rate: regular rate Rhythm: regular rhythm GI: Inspection: normal to inspection GI Palp: No No hepatosplenomegaly present Auscultation: normal bowel sounds Rectal Exam: deferred Skin: General skin exam: normal color Psych: Appearance: grossly normal Mental Status: mental status grossly normal Assessment and Plan Assessment and plan (1) Positive colorectal cancer screening using Cologuard test: Code(s): R19.5 - Other fecal abnormalities Status: Acute Assessment and Plan: The patient is deemed a good candidate for the procedure. Consent signed. Will proceed.
--- NOTE | 2025-04-09 12:33 | WPDANESEPPF ---
Anes - Initial Pre Proc Eval Procedure: Operation Date: 04/09/25 13:30 Proposed Procedures p Screening Colonoscopy - Kevin Disla MD Date/Time: 04/09/25 12:33 Surgeon: Kevin Disla MD Pre Op Diagnosis: screening/positive Cologuard Patient Data Age: 64 Gender: F Height: 1.65 m Weight: 73.5 kg Last Vital Signs Temp 97.2 F L 04/09/25 12:08 Pulse 74 04/09/25 12:08 Resp 16 04/09/25 12:08 BP 133/59 L 04/09/25 12:08 Pulse Ox 100 04/09/25 12:08 O2 Del Method Room Air 04/09/25 12:08 Allergies Allergy/AdvReac Type Severity Reaction Status Date / Time sumatriptan Allergy Unknown Unknown Verified 04/09/25 12:07 Home Medications ?Medication ?Instructions ?Recorded ?Confirmed ?Type bempedoic acid 180 mg tablet 180 mg PO DAILY 01/22/23 04/09/25 History (Nexletol) ezetimibe 10 mg tablet 10 mg PO DAILY #90 tabs 10/31/23 04/09/25 Rx esomeprazole magnesium 40 mg 20 mg PO BID 08/05/24 04/09/25 History capsule,delayed release (Nexium) metoprolol succinate 25 mg 25 mg PO DAILY 08/05/24 04/09/25 History tablet,extended release 24 hr Patient hx anesthesia problems: none Family hx anesthesia problems: none Results Review: All pre-operative results and documents have been reviewed as part of the pre-operative evaluation. [facility] Past Medical History Medical History (Updated 02/26/25 @ 13:32 by Leigh Donnelly APRN) Positive colorectal cancer screening using Cologuard test Elevated lipoprotein A level Elevated liver enzymes Anemia AMANDA (acute kidney injury) Breast cancer screening Colon cancer screening Skin cancer screening Family history of elevated lipoprotein (a) Abnormal MRI of head GERD (gastroesophageal reflux disease) Hypertension Family History Family History Father Hypertension Family history of diabetes mellitus in first degree relative Family history of primary malignant neoplasm of liver Mother Family history of elevated blood lipids Family history of Alzheimer's disease Other Family history of coronary artery disease Social History Social History Smoking status: Former smoker Tobacco type: cigarettes Second hand tobacco smoke exposure: No Alcohol intake: never Substance use: never Substance use type: does not use Living arrangements: with family 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 care concerns: No Anes - Eval Final PreProcedure Day of Procedure 04/09/25 12:33 Patient weight: obese Heart: regular rate and rhythm Lungs: clear to auscultation Airway: Mallampati scale class II Neurological: alert and oriented Last oral intake: >/= 8 hours ASA classification: III Emergent: no Anesthetic plan: proceed Anesthesia type and monitoring: general GIVS and standard monitoring Results Review: All pre-operative results and documents have been reviewed as part of the pre-operative evaluation. Informed Consent: The patient's anesthetic plan and its attendant risks and benefits were discussed with the patient/family/POA. Questions were solicited and answers provided to the satisfaction of the patient/family/POA.
--- NOTE | 2025-04-09 13:58 | S_PTH ---
PATIENT: Maddi Deras LOC: [facility]#:[id number] AGE/SX: 64/F ROOM: RE04/09/[address]: Kevin Disla MD : 1960 BED: DIS: 04/09/2025 SPEC #: [id number] RECD: 04/09/25 14:42 STATUS: RANJAN REQ #: [id number] NIKI: 04/09/25 13:[address]: Kevin Disla DEPT: [facility] Surgical RECD BY: Seema Velásquez ENTERED: 04/09/25 14:42 SP TYPE: Surgical OTHR DR: Jose J Cuadra MD Tissues: A - Colon Polypectomy B - Colon Polypectomy Procedures: Hematoxylin and Eosin Stain Gross and Microscopic Level 4
[2025-04-09 14:11] VITALS: BP 107/53; PULSE 70; RESP 25; O2SAT 100
[2025-04-09 14:21] VITALS: BP 110/68; PULSE 61; RESP 19; O2SAT 100
[2025-04-09 14:31] VITALS: BP 110/68; PULSE 65; RESP 17; O2SAT 100
== END 2025-04-09 14:40 | disposition home or self-care (01) ==
PROVIDERS: PCP Family Medicine; Referring Provider Nurse Practitioner Adult Health; Visit Provider Internal Medicine Gastroenterology
PROC: 0DJD8ZZ Inspection of Lower Intestinal Tract, Via Natural or Artificial Opening Endoscopic (ICD-10-PCS; CPT 45378; principal; 2025-04-09 13:30)
DX: R19.5 Other fecal abnormalities (principal); D12.5 Benign neoplasm of sigmoid colon; D12.8 Benign neoplasm of rectum; K57.30 Diverticulosis of large intestine without perforation or abscess without bleeding; D64.9 Anemia, unspecified; K21.9 Gastro-esophageal reflux disease without esophagitis; I10 Essential (primary) hypertension; E66.9 Obesity, unspecified; Z68.27 Body mass index [BMI] 27.0-27.9, adult; Z87.891 Personal history of nicotine dependence; Z80.0 Family history of malignant neoplasm of digestive organs; Z82.49 Family history of ischemic heart disease and other diseases of the circulatory system
CPT/HCPCS: 45385; 88305; J2003; J2704; J7120

== ENCOUNTER 2025-05-12 14:41 | Outpatient (CLI) | payer OTHER, SELFPAY ==
--- NOTE | ~2025-05-12 | MM_ITS ---
EXAMINATION: MM screening alexa BI w alex HISTORY: Screening TECHNIQUE: Craniocaudal and mediolateral oblique 3-D tomosynthesis images were obtained and synthetic 2-D images were generated. CAD analysis was submitted and interpreted. COMPARISON: None provided BREAST PARENCHYMAL COMPOSITION: Not Dense: There are scattered areas of fibroglandular density. FINDINGS: There is no evidence of suspicious mass, calcification, or architectural distortion to suggest malignancy in either breast. IMPRESSION: 1. No mammographic evidence of malignancy. 2. Recommend routine screening mammography in one year. BI-RADS Category 1: Negative Reviewed, dictated and finalized at location B. [facility]
== END 2025-05-12 14:42 | disposition home or self-care (01) ==
PROVIDERS: PCP Family Medicine; Visit Provider Family Medicine
DX: Z12.31 Encounter for screening mammogram for malignant neoplasm of breast (principal)
CPT/HCPCS: 77063; 77067